=== PATIENT | male | born 1985 | race Caucasian/White ===

== ENCOUNTER 2020-03-31 20:07 | Emergency (ER) | payer MEDICAID ==
[~2020-03-31] VITALS: Ht 172.7 cm; Wt 108.9 kg
[2020-03-31 20:20] VITALS: BP 151/96
--- NOTE | 2020-03-31 20:20 | NUR ---
ED Nurse Note: Patient walked into ED due to his PCP referring him to have a the bamlinivimab infusion. patient reports of testing positive earlier today, denies any SOB however reports of having a sore throat yesterday. patient is alert and oriented x4, ambulatory with a steady gait, VSS. patient placed in isolation room. will continue to monitor
--- NOTE | 2020-03-31 20:40 | Emergency Room Report ---
History of Present Illness General Chief Complaint: Flu Like Symptoms Source: Patient Present Illness HPI Patient tested positive for Covid today. His private physician told him to come to the emergency department for eval. Patient has risk factors of asthma, obesity and hypertension. Yesterday he had a sore throat. He denies dyspnea on exertion or productive cough. He uses an inhaler and inhaler 4 times a day. He suffers from anxiety. He does complain of a headache. He rates the pain is 6/10 at this time and aching without radiation. He has not taken any medication aside from his inhaler. No fevers, chills, chest pain, palpitations, nausea, vomiting, diarrhea, dysuria, abdominal pain, shortness of breath, joint pain, rashes, visual changes, dizziness. Allergies: Coded Allergies: No Known Allergies (Unverified , 03/31/20) COVID-19 Screening Contact w/high risk pt: Yes Experienced COVID-19 symptoms?: Yes COVID-19 Testing performed SENIOR TELLER: Yes COVID-19 Screening: Positive COVID-19 COVID-19 Testing Source: Pediatric urgent care at [facility] Patient History Past Medical History: see triage record Social History: Denies: smoking, alcohol use, drug use Social History Narrative [employer]. Youngest 3 months old is 13, 6 children Reviewed Nursing Documentation: PMH: Agreed; PSxH: Agreed Nursing Documentation-PMH Hx Hypertension: Yes Hx Asthma: Yes History Of Psychiatric Problem: Yes - depression, anxiety Review of Systems All Other Systems: negative except mentioned in HPI Physical Exam Vital Signs Date Time Temp Pulse Resp B/P (MAP) Pulse Ox O2 Delivery O2 Flow Rate FiO2 03/31/20 20:16 98.8 89 20 151/96 (114) 97 Room Air Sp02 EP Interpretation: reviewed, normal General Appearance: well appearing, no apparent distress, GCS 15, non-toxic Head: normocephalic Eyes: bilateral eye normal inspection, bilateral eye PERRL, bilateral eye EOMI ENT: other - Wearing a mask Neck: full range of motion, supple, no meningismus Respiratory: chest non-tender, lungs clear, normal breath sounds Cardiovascular #1: regular rate, rhythm Cardiovascular #2: 2+ radial (R) Gastrointestinal: normal inspection, normal bowel sounds, non tender, no mass, non-distended, overweight Genitourinary: no CVA tenderness Musculoskeletal: back normal, normal range of motion, no calf tenderness, gait/station normal Neurologic: alert, oriented x3, grossly normal Psychiatric: anxious Skin: other - Fully dressed Medical Decision Making Diagnostic Impression: Primary Impression: COVID-19 Additional Impressions: Hypertension BMI 36.0-36.9,adult H/O intrinsic asthma ER Course Patient presents with several risk factors with the history of positive Covid test today. BAM is indicated. BAM is ordered. No laboratory tests are indicated at this time. Due to pulse oximetry chest x-rays not indicated. This patient was evaluated in the context of the global COVID-19 pandemic, which necessitated consideration that the patient might be at risk for infection with the [id number] virus that causes COVID-19. Institutional protocols and algorithms that pertain to the evaluation of patients at risk for COVID-19 and the state of rapid change based on information released by multiple regulatory bodies including the CDC and federal and state organizations. These policies and algorithms were followed during the patient's care in the ED. BAM infusing without difficulty. Discussed assessment and treatment plan with patient. Questions answered. No medical emergency at this time. Patient stable for outpatient observation and treatment. Last Vital Signs Date Time Temp Pulse Resp B/P (MAP) Pulse Ox O2 Delivery O2 Flow Rate FiO2 03/31/20 23:28 98.8 86 20 151/96 97 Room Air Status: improved Disposition: HOME, SELF-CARE Condition: Improved Dominic Rutledge MD Mar 31, 2020 20:40
[2020-03-31] MEDS ORDERED: Bamlanivimab 700 MG in NS 275 ML IVPB SCH (20:45)
[2020-03-31] MEDS ORDERED: Bamlanivimab Fact Sheet MISC ONE (20:45)
--- NOTE | 2020-03-31 21:15 | NUR ---
ED Nurse Note: Bamlinivimab infusion started. patient has read and understood the risks. patient was given fact sheet regarding said infusion
[2020-03-31 23:28] VITALS: BP 151/96
--- NOTE | 2020-03-31 23:28 | NUR ---
ER DISCHARGE NOTE: Patient is cleared to be discharged per ERMD, pt is aox4, on room air, with stable vital signs. pt was given dc and prescription instructions, pt was able to verbalize understanding, pt id band and iv site removed without complications. pt is able to ambulate with steady gait. pt took all belongings.
== END 2020-03-31 23:29 | disposition home or self-care (01) ==
LOC: EMR 20:45
DX: U07.1 COVID-19 (principal); I10 Essential (primary) hypertension; E66.3 Overweight; Z68.36 Body mass index [BMI] 36.0-36.9, adult; F41.9 Anxiety disorder, unspecified; F32.9 Major depressive disorder, single episode, unspecified
CPT/HCPCS: 96365; J7050; Q0239; Z7502; 99284